=== PATIENT | female | born 1940 | race Caucasian/White ===

== ENCOUNTER 2016-11-26 08:16 | Day surgery (SDC) | payer MEDICARE, BC ==
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
[~2016-11-26 08:16] MED LIST: APRACLONIDINE 0.5% OPHTH 5 ML BTL OP ONE; BUPIVACAINE HCL/PF 0.75% 10 ML VIAL OP ONE; CIPROFLOXACIN 0.3% OPHTH 25 DROP/2.5 ML BTL OP SCH; CYCLOPENTOLATE HCL 1% OPHTH 2 ML BTL OP SCH; FLURBIPROFEN 0.03% OPHTH 2.5 ML BTL OP SCH; PHENYLEPHRINE 2.5% OPHTH 10 DROP/2 ML BTL OP SCH
[2016-11-26] MEDS ORDERED: FLURBIPROFEN 0.03% OPHTH 2.5 ML BTL ONE (08:33)
[2016-11-26] MEDS ORDERED: BUPIVACAINE HCL/PF 0.75% 10 ML VIAL ONE (08:33)
[2016-11-26] MEDS ORDERED: APRACLONIDINE 0.5% OPHTH 5 ML BTL ONE (08:33)
[2016-11-26] MEDS ORDERED: CIPROFLOXACIN 0.3% OPHTH 25 DROP/2.5 ML BTL ONE (08:34)
[2016-11-26] MEDS ORDERED: CYCLOPENTOLATE HCL 1% OPHTH 2 ML BTL ONE (08:34)
[2016-11-26] MEDS ORDERED: PHENYLEPHRINE 2.5% OPHTH 10 DROP/2 ML BTL ONE (08:34)
[2016-11-26 09:05] VITALS: RESP 18
[2016-11-26] MEDS ORDERED: BACITRACIN OPHTH OINTMENT 3.5 GM TUBE ONE (09:50)
[2016-11-26] MEDS ORDERED: CHONDROITIN/HYALURONIDATE OPHT 0.5 ML KIT ONE (09:51)
[2016-11-26] MEDS ORDERED: KETOROLAC 0.45% OPHTH 1 DROP/EACH DROPERETTE ONE (09:51)
[2016-11-26] MEDS ORDERED: LIDOCAINE HCL/PF 1% 30 ML VIAL ONE (09:51)
[2016-11-26] MEDS ORDERED: MIDAZOLAM HCL 2 MG/2 ML VIAL ONE (10:09)
[2016-11-26 10:49] VITALS: BP 141/70; PULSE 60; TEMP 97.5; O2SAT 90
--- NOTE | 2016-11-26 14:36 | OPERATIVE REPORT ---
DATE OF SURGERY: 11/26/2016. SURGEON: Dylan Moya MD ANESTHESIA: Topical with monitored anesthesia care. PREOPERATIVE DIAGNOSIS: Cataract, right eye. POSTOPERATIVE DIAGNOSIS: Cataract, right eye. OPERATION PERFORMED: Cataract extraction by phacoemulsification with posterior chamber intraocular lens, right eye. COMPLICATIONS: None. PROCEDURE: The patient was brought to the operating room where she was placed in the supine position. After the instillation of additional tetracaine drops in the right eye, the eye was prepped and draped in the usual sterile ophthalmic manner. A lid speculum was placed in the right eye, after which an inferior paracentesis was fashioned with 1-mm steel keratome, and 0.2 mL of 1% nonpreserved lidocaine was injected intracamerally followed by Viscoat. A temporal clear corneal incision of 3-mm width was fashioned with a steel keratome. A continuous curvilinear capsulorrhexis was fashioned with a bent- needle cystitome and Utrata forceps under Viscoat. Hydrodissection was carried out with balanced salt solution on an intraocular cannula. The nucleus was noted to rotate freely. Phacoemulsification proceeded in a two-handed fashion utilizing moderate phacoemulsification times and carranza, as the nucleus was noted to be 2-3+ dense. Residual cortical material was then removed with the automated irrigation-aspiration handpiece. The anterior chamber and capsular bag were then reinflated with Provisc, after which an AcrySof model SA60AT foldable acrylic intraocular lens of 24.0 diopters power was placed into the capsular bag. The haptics were rotated with a Y hook and the intraocular lens was noted to center well. Residual viscoelastic was then removed with the automated irrigation-aspiration handpiece , after which the wound edges were hydrated with balanced salt solution. The intraocular pressure at the conclusion of the procedure was physiologic, and there was no evidence of wound leakage upon testing with a Weck Romelia sponge. Acular drops and bacitracin ointment were placed in the right eye, and the patient was brought to the recovery area, having tolerated the procedure well. She was given full postoperative instructions. SHAMAR
== END 2016-11-26 11:15 | disposition home or self-care (01) ==
LOC: SDS 08:16
PROVIDERS: ATTEND Ophthalmology
DX: H25.041 Posterior subcapsular polar age-related cataract, right eye (principal); F41.9 Anxiety disorder, unspecified; I65.23 Occlusion and stenosis of bilateral carotid arteries; F32.9 Major depressive disorder, single episode, unspecified; I51.9 Heart disease, unspecified; K21.9 Gastro-esophageal reflux disease without esophagitis; I12.9 Hypertensive chronic kidney disease with stage 1 through stage 4 chronic kidney disease, or unspecified chronic kidney disease; N18.2 Chronic kidney disease, stage 2 (mild); I73.9 Peripheral vascular disease, unspecified; G47.33 Obstructive sleep apnea (adult) (pediatric); R73.01 Impaired fasting glucose; E89.0 Postprocedural hypothyroidism; E78.00 Pure hypercholesterolemia, unspecified; L71.9 Rosacea, unspecified; Z79.899 Other long term (current) drug therapy
CPT/HCPCS: 66984; J0171; J2250; V2632

== ENCOUNTER 2016-12-22 11:36 | Emergency (ER) | payer MEDICARE, BC ==
[2016-12-22 12:39] LABS: HEMATOCRIT 42.6 % (36.0-48.0); HEMOGLOBIN 14.7 g/dL (12.0-16.0); MEAN CELL VOLUME 83.3 fL (80.0-100.0); MEAN CORPUS. HGB CONCENTRATION 34.5 g/dL (32.0-36.0); MEAN CORPUSCULAR HEMOGLOBIN 28.7 pg (29.0-35.0); MEAN PLATELET VOLUME 8.1 fL (7.4-10.4); RED BLOOD COUNT 5.12 X 10^6uL (4.20-6.10); RED CELL DISTRIBUTION WIDTH 12.8 % (11.5-14.5); WHITE BLOOD COUNT 5.2 X 10^3uL (3.9-10.7)
[2016-12-22 12:51] LABS: A/G RATIO 1.3; ALBUMIN 4.3 g/dL (3.5-5.0); BILIRUBIN, TOTAL 0.7 mg/dL (0.2-1.3); CALCIUM 9.4 mg/dL (8.4-10.2); POTASSIUM 4.4 mmol/L (3.5-5.1); TOTAL PROTEIN 7.5 g/dL (6.3-8.2)
--- NOTE | 2016-12-22 13:10 | ER PHYSICIAN DOCUMENTATION ---
Physician Documentation [facility] Name:Shital Parr Age:76 yrs Sex:Female :1940 Arrival Date:12/22/2016 Time:11:36 Bed1 Private MD:Matt Jay ED, John Disposition: 12/22/16 12:53 Discharged to Home/Self Care. Impression: Hypertension. - Condition is Good. - Discharge Instructions: HYPERTENSION, Established. - Medical Reconciliation form form. - Follow up: Matt Jay MD; When: 10 - 14 days; Reason: Continuance of care. - Problem is new. - Symptoms have improved. HPI: 12/22 12:38 This 76 yrs old Female presents to ER via Private Vehicle with complaints of jm High Blood Pressure. 12:38 The patient has elevated blood pressure and discovered this at [facility]. at home. Onset: The symptom(s)/episode began/occurred 3 day(s) ago. Severity of symptoms: At its worst the blood pressure was 200 mm Hg, in the emergency department the blood pressure is improved, markedly. The patient has not experienced similar symptoms in the past. 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 She was getting an eye exam and her BP was up and she was c/o of some dizziness, so Dr. Moya recommended that she get checked out in the ER. . Historical: - Allergies: PAIN MED?; - Home Meds: 1. Atenolol Oral 2. spironolactone Oral 3. Synthroid Oral - PMHx: HYPERTENSION; ARRHYTHMIA; Dizziness - Vertigo (March 24, 2016); - Tetanus: < 10 years. - Ebola Screening: : Patient negative for fever greater than or equal to 101.5 degrees Fahrenheit, and additional compatible Ebola Virus Disease symptoms. Patient denies exposure to infectious person. Patient denies travel to an Ebola-affected area in the 21 days before illness onset. No symptoms or risks identified at this time. . - Immunization history: Unable to Obtain. - Social history: Patient uses alcohol but reports only rare drinking. ROS: 12:39 Constitutional: Negative for fatigue, fever, malaise. jm 12:39 ENT: Positive for mild L jaw and ear pain for years. . 12:39 Neck: Positive for stiffness, tenderness. 12:39 Cardiovascular: Negative for chest pain, palpitations. 12:39 Respiratory: Negative for cough, shortness of breath. 12:39 Psych: Positive for stress. Exam: 12:40 Constitutional: The patient appears alert, awake, anxious. 12:40 Eyes: Periorbital structures: appear normal, Conjunctiva: normal. 12:40 Cardiovascular: Rate: bradycardic, Rhythm: regular. 12:40 Respiratory: Respirations: normal, Breath sounds: are normal. 12:40 Neuro: Mentation: is normal, Memory: is normal. 12:40 Neuro: Cerebellar function: is grossly normal, Gait: is steady. 12:40 Psych: Behavior/mood is pleasant, cooperative, Affect is calm. Vital Signs: 11:59 BP 163 / 68; Pulse 58; Resp 20; Temp 97.7; Pulse Ox 90% on R/A; Pain 0/10; rs 11:59 BP 144 / 98; Pulse 67; Resp 20; Pulse Ox 95% on R/A; Pain 0/10; rs MDM: 11:40 Patient medically screened. 12:41 Differential diagnosis: hypertensive crisis, stress related sx. Data reviewed: vital jm signs, nurses notes, old medical records, lab test result(s), EKG, and as a result, I will discharge patient. Test interpretation: by ED physician or midlevel provider: ECG. Counseling: I had a detailed discussion with the patient and/or guardian regarding: the historical points, exam findings, and any diagnostic results supporting the discharge/admit diagnosis, lab results, the need for outpatient follow up, with the patient's primary care provider. ECG:. 13:00 ECG:. ED course: Work up normal. BP is a bit elevated, but it lowered w pt just jm relaxing and being reassured. I feel this is mostly stress related. Pt will f/u w PCP. . 12/22 12:51 Order name: COMPREHENSIVE METABOLIC PANEL; Complete Time: 17:23 EDMS 12/22 12:52 Order name: CBC AUTO DIF, MDIF/RMOR IF IND; Complete Time: 12:52 EDMS 12/22 12:53 Order name: CBC WITHOUT A DIFFERENTIAL; Complete Time: 17:23 EDMS 12/22 12:21 Order name: 12-lead EKG; Complete Time: 13:09 EC:00 Rhythm is regular. QRS Swatara is Normal. AK interval is normal. QRS interval is normal. QT interval is normal. No Q waves. T waves are Normal. No ST changes noted. Dispensed Medications: No medications were administered Signatures: Karla Grant RN RN st Stalker, Rachael, RN RN rs Meyer, John, MD MD jm
--- NOTE | 2016-12-22 13:10 | ER NURSING DOCUMENTATION ---
Nurse's Notes [facility] Name:Shital Parr Age:76 yrs Sex:Female :1940 Arrival Date:12/22/2016 Time:11:36 Bed1 Private MD:Matt Jay Diagnosis:Hypertension Presentation: 12/22 11:45 Presenting complaint:. Transition of care: Other Dr Abreu office. She was there for rs a recheck for cataract surgery 3 weeks ago, and was c/o the TMJ pain she has been having. No one was available in the clinic to see her for this so they sent her to the ER> She had her pupils dilated by Dr Moya. She has also had some episodes of high Bp in the last four days, but she states she has been very stressed due to her having a stroke and is very sick. Notified ED Physician of Nguyễn Dueñas notified. 11:45 Acuity: OBED 4 rs 11:45 Method Of Arrival: Private Vehicle rs Triage Assessment: 12:05 General: Appears comfortable, well developed, well nourished, well groomed, Behavior is rs anxious, cooperative, pleasant. Pain: Denies pain. Neuro: No deficits noted. Level of Consciousness is awake, alert, Oriented to person, place, time, event. Cardiovascular: No deficits noted. Capillary refill < 3 seconds Pulses are 3+ in left radial artery. Respiratory: No deficits noted. Airway is patent Respiratory effort is even, unlabored, Respiratory pattern is regular, symmetrical, Breath sounds are clear. Derm: No deficits noted. Skin is pink, warm & dry. Historical: - Allergies: PAIN MED?; - Home Meds: 1. Atenolol Oral 2. spironolactone Oral 3. Synthroid Oral - PMHx: HYPERTENSION; ARRHYTHMIA; Dizziness - Vertigo (March 24, 2016); - Tetanus: < 10 years. - Ebola Screening: : Patient negative for fever greater than or equal to 101.5 degrees Fahrenheit, and additional compatible Ebola Virus Disease symptoms. Patient denies exposure to infectious person. Patient denies travel to an Ebola-affected area in the 21 days before illness onset. No symptoms or risks identified at this time. . - Immunization history: Unable to Obtain. - Social history: Patient uses alcohol but reports only rare drinking. Screenin:59 Infectious Disease Risk None. Abuse screen: Denies threats or abuse. Nutritional rs screening: No deficits noted. Assessment: 12:59 Reassessment: Patient states feeling better. rs 13:31 General: pt felt dizzy when she stood up. pt is laying back down drinking some water.. st 13:36 General: pt is feeling better and wants to go home. . st Vital Signs: 11:59 BP 163 / 68; Pulse 58; Resp 20; Temp 97.7; Pulse Ox 90% on R/A; Pain 0/10; rs 11:59 BP 144 / 98; Pulse 67; Resp 20; Pulse Ox 95% on R/A; Pain 0/10; rs ED Course: 11:38 Patient arrived in ED. ds 11:38 Matt Jay MD is Private Physician. ds 11:40 Damon Adrian MD is Attending Physician. jm 12:02 Quynh Cassidy RN is Primary Nurse. rs 12:10 Notified ED Physician of patient's arrival and chief complaint. Arm band placed on Bed rs in low position Call Light in Reach HOB Elevated Side rails up x1. 12:25 Triage completed. rs 12:40 EKG done per protocol. Performed by ED Staff. Labs ordered per protocol. Drawn by lab. rs 12:40 EKG done. (by ED staff). Reviewed by Damon Adrian MD. rs 12:52 Matt Jay MD is Referral Physician. Administered Medications: No medications were administered Outcome: 12:53 Discharge ordered by . kim 13:09 Discharged to home ambulatory. rs 13:09 Condition: improved 13:09 Discharge instructions given to patient, Instructed on discharge instructions, Demonstrated understanding of instructions. 13:10 Patient left the ED. rs 13:37 Patient [address] the ED. st Signatures: Karla Grant RN RN st Stalker, Rachael, RN RN rs Srot, Eyny, Reg Reg Damon Aviles MD MD jm
== END 2016-12-22 13:37 | disposition home or self-care (01) ==
LOC: ER 11:36
DX: I10 Essential (primary) hypertension (principal); M54.2 Cervicalgia; R42 Dizziness and giddiness; Z79.899 Other long term (current) drug therapy; Z63.6 Dependent relative needing care at home
CPT/HCPCS: 36415; 80053; 85027; 93005; 93010; 99283; 99284

== ENCOUNTER 2017-01-01 20:21 | Observation (INO) | payer MEDICARE, BC ==
[2017-01-01] MEDS ORDERED: DILTIAZEM HCL 125 MG/25 ML VIAL IV ONE (21:15)
[2017-01-01 21:22] LABS: BASOPHIL# 0.1 X 10^3uL (0.0-0.1); BASOPHILS 1.6 % (0.0-2.0); EOSINOPHILS 2.6 % (0.0-6.0); EOSINOPHILS# 0.1 X 10^3uL (0.0-0.4); HEMOGLOBIN 15.6 g/dL (12.0-16.0); LYMPHOCYTES 42.8 % (20.0-40.0); LYMPHOCYTES# 2.4 X 10^3uL (0.8-3.8); MEAN CELL VOLUME 83.5 fL (80.0-100.0); MEAN CORPUS. HGB CONCENTRATION 34.7 g/dL (32.0-36.0); MEAN PLATELET VOLUME 8.8 fL (7.4-10.4); MONOCYTES 8.8 % (2.0-10.0); MONOCYTES# 0.5 X 10^3uL (0.2-1.0); NEUTROPHILS 44.2 % (54.0-75.0); NEUTROPHILS# 2.5 X 10^3uL (2.6-6.7); PLATELET COUNT 124 X 10^3uL (130-440); RED BLOOD COUNT 5.39 X 10^6uL (4.20-6.10); RED CELL DISTRIBUTION WIDTH 12.7 % (11.5-14.5); WHITE BLOOD COUNT 5.6 X 10^3uL (3.9-10.7)
[2017-01-01 21:28] LABS: BLOOD UREA NITROGEN 18 mg/dL (7-17); CALCIUM 9.7 mg/dL (8.4-10.2); CHLORIDE 103 mmol/L (98-107); EST GLOMERULAR FILTRATION RATE 57 mL/min; GLUCOSE 103 mg/dL (70-100); MAGNESIUM 2.1 mg/dL (1.6-2.3); SODIUM 137 mmol/L (137-145)
--- NOTE | 2017-01-01 21:33 | RADIOLOGY REPORT ---
HISTORY: Dizziness. Hypertension. COMPARISON: None. TECHNIQUE: Portable AP chest. FINDINGS: There is mild to moderate hypoinflation of the lungs. No focal areas of consolidation. No pleural eff usions or pneumothoraces. Top normal heart size to mild cardiomegaly. Mild atherosclerosis and tortu osity thoracic aorta. Spondylosis thoracic spine. Mild degenerative arthritis shoulders. Osteopenia. IMPRESSION: 1. Mild to moderate hypoinflation of the lungs with no focal areas of consolidation. 2. Top normal heart size to mild cardiomegaly. Final Electronic Signature: This report was electronically signed by Gerry May MD on 01/01/2017 9: 31 PM. ivan /
[2017-01-01 21:40] LABS: TROPONIN I < 0.012 ng/mL (0.00-0.034)
[2017-01-01] MEDS ORDERED: LORazepam 1 MG TABLET ONE (21:47)
[2017-01-01] MEDS ORDERED: HOME MEDICATION LIST NEEDED 1 EA EACH MISC ONE (22:51)
[2017-01-01] MEDS ORDERED: MORPHINE SULFATE 10 MG/ML SYR IV PRN (22:51)
[2017-01-01] MEDS ORDERED: ZOLPIDEM TARTRATE 5 MG TABLET PO PRN (22:51)
[2017-01-01] MEDS ORDERED: ACETAMINOPHEN 325 MG TABLET PO PRN (22:51)
[2017-01-01] MEDS ORDERED: MAGNESIUM HYDROXIDE 30 ML UDC PO PRN (22:51)
[2017-01-01] MEDS ORDERED: LABETALOL HCL 100 MG/20 ML VIAL IV PRN (22:56)
--- NOTE | 2017-01-01 23:49 | ER NURSING DOCUMENTATION ---
Nurse's Notes [facility] Name:Shital Parr Age:76 yrs Sex:Female :1940 Arrival Date:01/01/2017 Time:20:21 Bed4 Private MD:Matt Jay Diagnosis:Atrial Fibrillation with Rapid Ventricular Response;Hypertensive Emergency Presentation: 01/01 20:55 Presenting complaint: Patient states: States she has been feeling well since she was rs last in the ER. Saw the order management specialist and was started on Losartan 12/26/2016.. She checks her BP TID and had a systolic of 123 this morning, then 149 after lunch, and she was feeling fine when she took the evening BP, buit afterward started having dizziness and pressure in her head.. 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 Denies CP or SOB, no n/v. Transition of care: patient was not received from another setting of care. Notified ED Physician of patient's arrival and CC. 20:55 Acuity: OBED 2 rs 20:55 Method Of Arrival: Private Vehicle rs Triage Assessment: 21:18 General: Appears well developed, well nourished, Behavior is anxious, Not completely rs cooperative. Requested that she allow us to get an EKG prior to getting up to BR, but did not respond and just stood up and walked to the BR. IV delayed also. Seems angry. . Smells of alcohol. Pain: Denies pain. Neuro: No deficits noted. Level of Consciousness is awake, alert, Oriented to person, place, time, event, Reports blurred vision Denies weakness paresthesias numbness photophobia. Cardiovascular: Capillary refill < 3 seconds Pulses are 3+ in left radial artery Denies fatigue, palpitations, Rhythm is sinus tachycardia with PACs with unifocal PVCs Chest pain is denied. Respiratory: No deficits noted. Airway is patent Respiratory effort is even, unlabored, Respiratory pattern is regular, symmetrical, Breath sounds are clear bilaterally. GI: No deficits noted. Derm: No deficits noted. Skin is pink, warm & dry. flushed. Historical: - Allergies: PAIN MED?; - Home Meds: 1. Synthroid Oral 2. spironolactone Oral 3. Atenolol Oral 4. losartan 25 mg oral tab 1 tab once daily - PMHx: Hypertension (December 22, 2016); HYPERTENSION; ARRHYTHMIA; Dizziness - Vertigo (March 24, 2016); - PSHx: FOOT; - Tetanus: unknown. - Ebola Screening: : Patient negative for fever greater than or equal to 101.5 degrees Fahrenheit, and additional compatible Ebola Virus Disease symptoms. Patient denies exposure to infectious person. Patient denies travel to an Ebola-affected area in the 21 days before illness onset. No symptoms or risks identified at this time. . - Immunization history: Unable to Obtain. - Social history: Smoking status: unknown if patient ever smoked tobacco. Screenin:00 Infectious Disease Risk None. Abuse screen: Denies threats or abuse. Nutritional rs screening: No deficits noted. Assessment: 21:46 Reassessment: Patient states feeling better. Cardiovascular: Rhythm is sinus rhythm rs with PACs. Derm: Skin is pink, warm & dry. Vital Signs: 20:37 Pulse 84 MON; Resp 19; Pulse Ox 94% ; rs 20:42 BP 172 / 102 (auto/); rs 21:07 BP 173 / 70 (auto/); Pulse 96 MON; Resp 18; Pulse Ox 93% ; rs 21:12 Pulse 64 MON; Resp 17; Pulse Ox 95% ; rs 21:14 BP 179 / 75 (auto/); rs 21:27 Pulse 69 MON; Resp 23; Pulse Ox 92% ; rs 21:42 Pulse 69 MON; Resp 19; Pulse Ox 90% ; rs 22:02 BP 143 / 68 (auto/); rs 22:16 BP 167 / 82 (auto/); rs 22:17 Pulse 74 MON; Resp 19; Pulse Ox 95% ; rs 23:48 BP 145 / 68; Pulse 78; Resp 18; Pulse Ox 95% on R/A; rh ED Course: 20:22 Patient arrived in ED. ma1 20:22 Matt Jay MD is Private Physician. ma1 20:30 Notified ED Physician of patient's arrival and chief complaint. Arm band placed on Bed rs in low position Call Light in Reach Gowned HOB Elevated Side rails up x1. Family accompanied patient. 20:35 EKG done per protocol. Performed by ED Staff. Shown to ED physician. Labs ordered per rs protocol. Drawn by ED staff. X-ray done. X-ray ordered. 20:37 Damon Adrian MD is Attending Physician. jm 20:45 Inserted peripheral IV: 20 gauge in right antecubital area and blood collected. rh 20:55 Quynh Cassidy RN is Primary Nurse. rs 21:15 Triage completed. rs 21:18 Port Xray Completed. bassam 22:17 Dr Vergara with pt. rs 22:57 Toribio Kulkarni MD is Admitting Physician. Administered Medications: 21:05 Drug: Cardizem 10 mg; Route: IVP; Rate: 2 mg/min; Infused Over: 5 mins; Site: right rs antecubital; 22:15 Follow up: Response: No adverse reaction; Blood pressure is lowered; Cardiac rhythm rs changed 21:37 Drug: Ativan 1 mg; Route: PO; rs 23:29 Follow up: Response: Anxiety decreased rh 21:49 CANCELLED (Physician Discretion): Esmolol 500 mcg/kg/min IV at calculated rate Per protocol Outcome: 22:57 Decision to Admit by Provider. 23:40 Admitted to Med/surg accompanied by nurse, via stretcher, with chart. 23:40 Condition: stable 23:40 Report given to SHEY LANG FROM MED SURG 23:40 Instructed on need to admit 23:48 Patient left the ED. Signatures: Quynh Cassidy RN RN Damon Graff MD MD jm Abbott, Estefani Santamaria Evangelina Cassidy
--- NOTE | 2017-01-01 23:49 | ER PHYSICIAN DOCUMENTATION ---
Physician Documentation [facility] Name:Shital Parr Age:76 yrs Sex:Female :1940 Arrival Date:01/01/2017 Time:20:21 Bed4 Private MD:Matt Jay ED, John Disposition: 01/01/17 22:57 Admit ordered for Toribio Albarado. Preliminary diagnosis are Atrial Fibrillation with Rapid Ventricular Response, Hypertensive Emergency. - Bed requested for Medical/Surgical. - Condition is Fair. - Problem is new. - Symptoms have improved. 23 HR OBS Yes HPI: 01/01 21:29 This 76 yrs old Female presents to ER via Private Vehicle with complaints of jm Dizziness, High Blood Pressure. 21:29 The patient presents with dizziness. Onset: The symptom(s)/episode began/occurred jm today. Context: occurred while the patient was after pt took BP. Modifying factors: the symptoms are aggravated by nothing. Associated signs and symptoms: Pertinent positives: headache. Severity of symptoms: in the emergency department the symptoms are unchanged. The patient has not experienced similar symptoms in the past. The patient has not recently seen a physician. 76 yo F here for elevated BP and dizziness. . Historical: - Allergies: PAIN MED?; - Home Meds: 1. Synthroid Oral 2. spironolactone Oral 3. Atenolol Oral 4. losartan 25 mg oral tab 1 tab once daily - PMHx: Hypertension (December 22, 2016); HYPERTENSION; ARRHYTHMIA; Dizziness - Vertigo (March 24, 2016); - PSHx: FOOT; - Tetanus: unknown. - Ebola Screening: : Patient negative for fever greater than or equal to 101.5 degrees Fahrenheit, and additional compatible Ebola Virus Disease symptoms. Patient denies exposure to infectious person. Patient denies travel to an Ebola-affected area in the 21 days before illness onset. No symptoms or risks identified at this time. . - Immunization history: Unable to Obtain. - Social history: Smoking status: unknown if patient ever smoked tobacco. ROS: 21:33 Constitutional: Negative for fever, malaise. jm 21:33 Eyes: Negative for blurry vision. 21:33 Cardiovascular: Negative for palpitations. 21:33 Respiratory: Negative for cough, shortness of breath. 21:33 Abdomen/GI: Negative for abdominal pain, nausea, vomiting, diarrhea. 21:33 MS/extremity: Negative for rash, swelling. 21:33 Neuro: Positive for dizziness, headache. 21:33 Psych: Positive for anxiety. 21:33 All other systems are negative. Exam: 21:38 Constitutional: The patient appears alert, awake, anxious. 21:38 Eyes: Periorbital structures: appear normal, Conjunctiva: normal. 21:38 Neck: Thyroid: appears normal, Trachea: is midline with no obvious abnormalities. 21:38 Cardiovascular: Rate: tachycardic, Rhythm: irregularly irregular. 21:38 Respiratory: the patient does not display signs of respiratory distress, Respirations: normal, Breath sounds: are normal. 21:38 Abdomen/GI: Bowel sounds: normal, Palpation: abdomen is soft and non-tender. 21:38 Musculoskeletal/extremity: Pulses: are normal with no appreciated deficits, DVT Exam: No signs of deep vein thrombosis. Calves: are non-tender, have equal circumference. 21:38 Neuro: Mentation: is normal, Memory: is normal. 21:38 Psych: Behavior/mood is pleasant, cooperative, anxious, Affect is calm. Vital Signs: 20:37 Pulse 84 MON; Resp 19; Pulse Ox 94% ; rs 20:42 BP 172 / 102 (auto/); rs 21:07 BP 173 / 70 (auto/); Pulse 96 MON; Resp 18; Pulse Ox 93% ; rs 21:12 Pulse 64 MON; Resp 17; Pulse Ox 95% ; rs 21:14 BP 179 / 75 (auto/); rs 21:27 Pulse 69 MON; Resp 23; Pulse Ox 92% ; rs 21:42 Pulse 69 MON; Resp 19; Pulse Ox 90% ; rs 22:02 BP 143 / 68 (auto/); rs 22:16 BP 167 / 82 (auto/); rs 22:17 Pulse 74 MON; Resp 19; Pulse Ox 95% ; rs 23:48 BP 145 / 68; Pulse 78; Resp 18; Pulse Ox 95% on R/A; rh MDM: 20:37 Patient medically screened. jm 22:54 Differential diagnosis: cardiac arrhythmia, hyperventilation, HTN urgency/emergency, jm Afib w RVR. Data reviewed: vital signs, nurses notes, old medical records, lab test result(s), EKG, radiologic studies, and as a result, I will admit patient. Test interpretation: by ED physician or midlevel provider: plain radiologic studies, ECG. Counseling: I had a detailed discussion with the patient and/or guardian regarding: the historical points, exam findings, and any diagnostic results supporting the discharge/admit diagnosis, lab results, radiology results, the need for further work-up and treatment in the hospital. ECG:. Medication response: The patient's symptoms have improved, dilt. Physician consultation: Toribio Albarado MD regarding admission, and will see patient immediately. ED course: Pt's HTN and fib w RVR slowed w 10mg of dilt. Dr. Albarado is here and will admit for HTN emergency/urgency and afib w RVR. HE will write orders. Labs show chronic thrombocytopenia, but worse today. CXR normal. . 01/01 21:26 Order name: CBC AUTO DIF, MDIF/RMOR IF IND; Complete Time: 21:42 EDPR 01/01 21:32 Order name: BASIC METABOLIC PANEL; Complete Time: 21:42 [facility] 01/01 21:32 Order name: MAGNESIUM; Complete Time: 21:42 EDPR 01/01 21:39 Order name: PROTIME/INR; Complete Time: 21:42 EDPR 01/01 21:41 Order name: TROPONIN I; Complete Time: 21:42 EDPR 01/01 21:35 Order name: CHEST; [place] [id number]; Complete Time: 21:42 [facility] 01/01 20:56 Order name: 12-lead EKG; Complete Time: 21:05 01/01 20:56 Order name: Iv Saline Lock; Complete Time: 21:05 01/01 20:56 Order name: Place Patient On Monitor; Complete Time: 21:05 01/01 20:56 Order name: Pulse Ox Continuous; Complete Time: 21:05 EC:54 Rhythm is irregularly irregular, A fib. QT interval is normal. No Q waves. T waves are jm Normal. No ST changes noted. Dispensed Medications: 21:05 Drug: Cardizem 10 mg; Route: IVP; Rate: 2 mg/min; Infused Over: 5 mins; Site: right rs antecubital; 22:15 Follow up: Response: No adverse reaction; Blood pressure is lowered; Cardiac rhythm rs changed 21:37 Drug: Ativan 1 mg; Route: PO; rs 23:29 Follow up: Response: Anxiety decreased 21:49 CANCELLED (Physician Discretion): Esmolol 500 mcg/kg/min IV at calculated rate Per protocol Signatures: Quynh Cassidy RN RN rs Meyer, John, MD MD jm Hofsess, Rachel
[2017-01-02] MEDS ORDERED: O2 HUMIDIFIER 650 ML BOTTLE INHALATION ONE (01:05)
[2017-01-02] MEDS: LABETALOL HCL 100 MG TABLET PO SCH ×2 (01:14→08:14)
[2017-01-02 03:32] LABS: BASOPHIL# 0.1 X 10^3uL (0.0-0.1); BASOPHILS 1.3 % (0.0-2.0); EOSINOPHILS 2.2 % (0.0-6.0); EOSINOPHILS# 0.1 X 10^3uL (0.0-0.4); HEMATOCRIT 40.3 % (36.0-48.0); HEMOGLOBIN 13.7 g/dL (12.0-16.0); LYMPHOCYTES 46.9 % (20.0-40.0); LYMPHOCYTES# 2.1 X 10^3uL (0.8-3.8); MEAN CELL VOLUME 83.1 fL (80.0-100.0); MEAN CORPUSCULAR HEMOGLOBIN 28.2 pg (29.0-35.0); MEAN PLATELET VOLUME 8.1 fL (7.4-10.4); MONOCYTES 9.1 % (2.0-10.0); MONOCYTES# 0.4 X 10^3uL (0.2-1.0); NEUTROPHILS 40.5 % (54.0-75.0); NEUTROPHILS# 1.8 X 10^3uL (2.6-6.7); PLATELET COUNT 148 X 10^3uL (130-440); RED BLOOD COUNT 4.85 X 10^6uL (4.20-6.10); RED CELL DISTRIBUTION WIDTH 12.7 % (11.5-14.5); WHITE BLOOD COUNT 4.5 X 10^3uL (3.9-10.7)
[2017-01-02 03:35] LABS: BLOOD UREA NITROGEN 16 mg/dL (7-17); CALCIUM 8.9 mg/dL (8.4-10.2); CHLORIDE 109 mmol/L (98-107); CREATININE 0.8 mg/dL (0.5-1.0); EST GLOMERULAR FILTRATION RATE > 60 mL/min; GLUCOSE 101 mg/dL (70-100); SODIUM 139 mmol/L (137-145)
[2017-01-02 03:47] LABS: TROPONIN I < 0.012 ng/mL (0.00-0.034)
[2017-01-02] MEDS: PANTOPRAZOLE 40 MG TABLET PO SCH (06:28)
[2017-01-02] MEDS: LEVOTHYROXINE 100 MCG TABLET PO SCH (06:28)
--- NOTE | 2017-01-02 07:39 | HISTORY & PHYSICAL ---
DATE OF ADMISSION: 01/01/17 ATTENDING PHYSICIAN: Toribio Kulkarni MD EMERGENCY ROOM PHYSICIAN: Damon Sevilla MD PRIMARY CARE PHYSICIAN: Matt Jay MD CHIEF COMPLAINT: Rapid atrial fibrillation with hypertensive urgency. HISTORY OF PRESENT ILLNESS: Patient relates being in her usual state of health with controlled hypertension, although recent medication changes about a month ago. She underwent cataract surgery and her preoperative blood pressure was noted in the OR at 190s/70s. It was noted that she had hypertensive for some years and had recent medication changes including discontinuing Lisinopril for concerns regarding angioedema. It was noted that while taking Lisinopril that she had increases in her creatinine and does carry the diagnosis of stage 3 chronic kidney disease. She received medications, her blood pressure normalized and she underwent surgery without complications. She noticed shortly after that her grandson, who is bipolar and is usually well controlled on Depakote, attempted suicide by hanging, and was subsequently evaluated in the Emergency Room. In addition, to the attempted hanging, he did take 90 pills of Depakote and was transferred from [facility]. Because of the stress and anxiety and some of the impulsivity with money he had spent they do not have while he was manic, this has caused the patient some distress, and she has noticed paroxysmal hypertension since then. She does carry a diagnosis of PVCs and has seen Dr. Granados in the past and had been started on Atenolol. She also was seen by Dr. Lopez last week because of hypertension and had Losartan added to her medication regimen. She has also seen Dr. Jay, who had changed her Lisinopril to Spironolactone, as she had concerns regarding angioedema. Since then she has been checking her blood pressures fairly frequently, and she notes in the mornings that she is usually in the 120s/60s, by lunchtime 110s/60s, but spikes after dinner. Although today noted her blood pressure to be over 200 systolic and 90s diastolic. She felt dizzy and faint. There was no chest pain or shortness of breath. No paroxysmal nocturnal dyspnea or orthopnea, but she did have palpitations, and she noted on her blood pressure monitor that her heart rate was over 100. She called her son in [place] who is an EMT, and he rechecked her blood pressure in the 190s/100s and heart in the 120s, and he brought her to [facility] via ambulance. She states that she is otherwise well. No cough, cold, congestion recently. She is not taking decongestants or any new medications other than Losartan and Aldactone. She does relate increasing stress as above with her grandson and his hospitalization recently. She has noted prior paroxysmal hypertension as well as increased creatinine on an tin inhibitor. In the Emergency Room, she was treated with a single dose of Cardizem 10 mg with conversion of her atrial fibrillation back to sinus rhythm, and has continued to be hypertensive in the 150s-200s systolic despite the Cardizem. Labs including a troponin were unremarkable, with the exception of a platelet count in the 120s, and she does carry a diagnosis of thrombocytopenia. I was asked to admit the patient for management of her hypertension and atrial fibrillation, and did discuss with Dr. Adrian consideration of Asmol zehra, but unfortunately was unable to use vasoactive medications on the medical-surgical floor. An EKG in the Emergency Room showed a sinus rhythm, upright R-waves in V1 , but no acute ST-T wave changes of ischemia. Review of her old record, her most recent echocardiogram and cardiac duplex were over 03/2016, and showed minimal carotid stenosis between 1-15% bilaterally. She had aortic valve sclerosis, but normal ejection fraction and remainder of valves were unremarkable. She did have grade 1 diastolic dysfunction. PAST MEDICAL HISTORY 1. Possible angioedema possibly related to Tin inhibitor. 2. Anxiety. 3. Bakers cyst on her left knee. 4. Carotid stenosis per Dr. Bhatti notes, although most recent duplex argues against this. 5. Depression. 6. Diastolic dysfunction. 7. Gastroesophageal reflux disease. 8. Hemorrhoids, 9. Dyslipidemia. 10. Hypertension. 11. Hypothyroidism, status post ablation. 12. Nocturnal hypoxemia with sleep apnea and uses oxygen but without CPAP. 13. Impaired glucose tolerance. 14. Polycythemia related to untreated sleep apnea. 15. PTSD. 16. Sciatica. 17. Stage 3 chronic kidney disease, although creatinines have recently been around 0.9 to 1.1. 18. Thrombocytopenia. PAST SURGICAL HISTORY 1. Cataract surgery. 2. Cholecystectomy. 3. Blepharoplasty. DIAGNOSTIC STUDIES 1. Carotid ultrasounds, in 2013 she had 16-49% right internal carotid artery stenosis. A repeat in 2015, showed only mild disease of 1-15% bilaterally. 2. Echocardiogram 03/2016 showing ejection fraction 70%, aortic sclerosis and grade I diastolic dysfunction. 3. Stress echocardiogram in 2013 was unremarkable. ALLERGIES: Multiple including Tetracycline, Lasix, Hydrochlorothiazide, Diapamide, Lipitor but tolerates Crestor, Lisinopril with possible angioedema and cough, Niaspan with flushing and nonsteroidals although tolerates Indomethacin and aspirin. FAMILY HISTORY: Coronary disease in her son and hepatitis C in her brother. SOCIAL HISTORY: She does not drink alcohol. 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 She is a lifelong nonsmoker. MEDICATIONS Aspirin 81 mg daily. Atenolol 25 mg daily. Oxygen 2 liters nightly. Ibuprofen 600 mg as needed. Prednisolone eye drops 4 times daily in surgically treated eye, although is not currently using those. Prilosec 20 mg daily as needed. ProAir 2 puffs by MDI as needed for cough and wheeze. Crestor 5 mg at bedtime. Aldactone 75 mg twice daily. Synthroid 100 mcg daily. Losartan 25 mg daily. Lasix is listed but has not been taking this secondary to side effects. PHYSICAL EXAMINATION VITAL SIGNS: Blood pressures have ranged in the 140s-170s since my review and 60 -90s diastolic, heart rates range in the 60-90s with intermittent PVCs, but otherwise sinus rhythm. Respiratory rate is 14. She is afebrile at 98.8 and she is saturating 95% on 2 liters by nasal cannula. GENERAL: She is pleasant, tearful in no apparent distress. No jaundice, anemia, cyanosis, clubbing or lymphadenopathy. HEENT: Unable to appreciate her fundi as her pupils are miotic. Her oropharynx is clear with moist mucosa. Neck is supple with no masses or bruits appreciated. CARDIAC: Systolic murmur in the right upper sternal border but without radiation. There is no right upper ventricular heave, no further murmurs appreciated. No gallop rhythm. There is no sacral edema or pedal edema. RESPIRATORY: Good air entry into the bases and no adventitial sounds. ABDOMEN: Distended but nontender. No bruits over the kidneys. No other masses noted and bowel sounds are active. LOWER EXTREMITIES: She has no edema and 2+ dorsal pedis pulses bilaterally. LABORATORY DATA: White count 5.6, 44% neutrophils, 42% lymphocytes, hemoglobin at 15.6 and platelet count of 124. Her INR was 1 and chemistries showed troponin of less than 0.012, magnesium of 2.1. Her BUN is 18 with creatinine of 1.0 and sodium 137, potassium 4, chloride 103 and bicarb of 24. IMAGING: Chest x-ray shows mild to moderate hypoinflation of lungs but no consolidation and normal to slightly cardiomegaly heart size. EKG described above. ASSESSMENT 1. Hypertensive urgency. 2. Atrial fibrillation and rapid ventricular rate. 3. History of paroxysmal hypertension with increased creatinine while taking tin inhibitors. 4. Hypothyroidism. 5. Dyslipidemia. 6. Hypoxemia. PLAN: Patient's CHADSVASC is 3 suggesting that she would benefit from anticoagulation with paroxysmal atrial fibrillation. Have increased her aspirin to full strength and would consider Pradaxa but have requested cardiology to meet with patient and consult with consideration of repeating echocardiogram. Regarding rate control, have started Labetalol and discontinued patient's Atenolol. Part of this reason, is that will start an oral dose of Labetalol as well as PRN doses for management of her hypertension and heart rate. Have continued her Losartan and Aldactone, although decreased the dose of Aldactone some and increased the Losartan to 50 mg per day, and will titrate further over the next day or two if she remains in the hospital. The paroxysmal nature of the hypertension as well as increased creatinine on an Tin inhibitor resolved after discontinuation, does make me concerned regarding renal artery stenosis being the driving factor for hypertension that is paroxysmal in nature. I have requested plasma renin and Aldosterone level, though the suspect the Aldosterone will be partly affected by her concomitant use of Aldactone, and have requested a CT angiography of her kidneys and renal arteries, specifically for renal artery stenosis. Again, with the paroxysmal nature, I have requested a 24-hour urine collection for catacholamines and a TSH. Will recheck her CBC, BMP and troponins in the morning. Patient is a full code. MTDD
[2017-01-02] MEDS ORDERED: SPIRONOLACTONE 25 MG TABLET PO SCH (09:00)
[2017-01-02 09:03] LABS: TROPONIN I < 0.012 ng/mL (0.00-0.034)
[2017-01-02 09:12] LABS: THYROID STIMULATING HORMONE 1.23 uIU/mL (0.47-4.68)
--- NOTE | 2017-01-02 09:13 | PROGRESS NOTE: IM APSO ---
Assessment and Plan - Date of Encounter Date of Encounter: 01/02/17 (1) Hypertensive urgency Status: Acute Assessment and plan: On lisinopril had ?angioedema and elevated creatinine, seen by Dr. Jay and changed to aldactone at 75mg bid and then Dr. Lopez losartan 25mg/d and then Darwin with atenolol. Last nocte paroxysmal HTN to 200/100's and has been like this for some time intermittently. Work up for SHIRLENE/secondary HTN pending, changed to labetalol for rate control and BP menagement, full ASA and CHADS Vasc 3, request cardiology c/s for help in management and regading anticoagulation (NOAC vswarfarin vs ASA w/ thrombocytopenia). Increasing losartan to 50mg and cut aldactone to 50mg/bid. May need to increase losartan further. Current Visit: Yes (2) Atrial fibrillation with RVR Status: Acute Assessment and plan: Parosxymal, rate controlled with normodyne and full ASA with cars c/s pending regarding anticoagulation Current Visit: Yes (3) Hypothyroid Status: Chronic Assessment and plan: compend=sated, f/u labs and may need to adjust synthroid. Current Visit: Yes (4) Nocturnal hypoxemia Status: Acute Current Visit: Yes (5) Sleep apnea Status: Acute Assessment and plan: patient not wish CPAPbut does use nocte oxygen Current Visit: Yes (6) Bilateral atherosclerotic renal artery stenosis Status: Acute Assessment and plan: Will continue current iteration of medications as heart rate and blood pressure controlled, appreciate consult by Dr. Montero, have already cut aldactone dose back, will use labetalol as tolerating and not change to coreg, she is also on losartan which has been increased and won't start HCTZ as med listed as allergy. Current Visit: Yes - Time Spent With Patient Total time spent with greater than 50% in coordination of care (as documented) at patient's floor/unit and/or counseling patient: Greater than 35 minutes IM: PN Subjective General: no fatigue, no anxiety, no depression, no pain, no fever, no chills HEENT: no visual changes, no headache Cardiovascular: no chest pain, no chest pressure, no palpitations Respiratory: no cough Gastrointestinal: no abdominal pain, no nausea, no vomiting Musculoskeletal: no pain Neurological: no headache, no numbness, no tingling, no limb weakness IM: PN Objective Exam - I&O/Vital Signs I&O: Intake & Output 01/01/17 01/02/17 01/02/17 21:59 05:59 13:59 Intake Total 200 Output Total 600 Balance -400 Weight 77.5 kg Intake: Oral 200 Output: Urine 600 Other: Urine Appearance Clear Urine Color Yellow Voiding Method Toilet # Voids 2 # Bowel Movements 0 Vital Signs: Last Vital Signs Temp 36.6 C 01/02/17 06:27 Pulse 61 01/02/17 06:27 Resp 16 01/02/17 06:27 BP 129/59 01/02/17 06:27 Pulse Ox 96 01/02/17 06:27 Oxygen Flow Rate 2 Oxygen Delivery Method Nasal Cannula - Constitutional General appearance: Present: average body habitus - Head Head exam: Present: atraumatic - Eye Eye exam: Present: EOMI, normal appearance - ENT ENT exam: Present: mucous membranes moist - Neck Neck exam: Present: full ROM. Absent: lymphadenopathy, thyromegaly - Respiratory Respiratory exam: Present: CTAB - Cardiovascular Cardiovascular exam: Present: RRR (murmer at RUSB) - GI/Abdominal GI/Abdominal exam: Present: normal bowel sounds, soft. Absent: organomegaly, tenderness - Extremities Exam Extremities exam: Absent: calf tenderness, edema - Lab Labs: Laboratory Last Values WBC 4.5 X 10^3uL (3.9-10.7) 01/02/17 03:20 RBC 4.85 X 10^6uL (4.20-6.10) 01/02/17 03:20 Hgb 13.7 g/dL (12.0-16.0) 01/02/17 03:20 Hct 40.3 % (36.0-48.0) 01/02/17 03:20 MCV 83.1 fL (80.0-100.0) 01/02/17 03:20 MCH 28.2 pg (29.0-35.0) L 01/02/17 03:20 MCHC 34.0 g/dL (32.0-36.0) 01/02/17 03:20 RDW 12.7 % (11.5-14.5) 01/02/17 03:20 Plt Count 148 X 10^3uL (130-440) 01/02/17 03:20 MPV 8.1 fL (7.4-10.4) 01/02/17 03:20 Neutrophils % 40.5 % (54.0-75.0) L 01/02/17 03:20 Lymphocytes % 46.9 % (20.0-40.0) H 01/02/17 03:20 Eosinophils % 2.2 % (0.0-6.0) 01/02/17 03:20 Basophils % 1.3 % (0.0-2.0) 01/02/17 03:20 Neutrophils # 1.8 X 10^3uL (2.6-6.7) L 01/02/17 03:20 Lymphocytes # 2.1 X 10^3uL (0.8-3.8) 01/02/17 03:20 Monocytes 9.1 % (2.0-10.0) 01/02/17 03:20 Monocytes # 0.4 X 10^3uL (0.2-1.0) 01/02/17 03:20 Eosinophils # 0.1 X 10^3uL (0.0-0.4) 01/02/17 03:20 Basophils # 0.1 X 10^3uL (0.0-0.1) 01/02/17 03:20 PT 13.6 sec (13.0-16.6) 01/01/17 20:55 INR 1.0 01/01/17 20:55 Sodium 139 mmol/L (137-145) 01/02/17 03:20 Potassium 4.0 mmol/L (3.5-5.1) 01/02/17 03:20 Chloride 109 mmol/L (98-107) H 01/02/17 03:20 Carbon Dioxide 22 mmol/L (22-30) 01/02/17 03:20 BUN 16 mg/dL (7-17) 01/02/17 03:20 Creatinine 0.8 mg/dL (0.5-1.0) 01/02/17 03:20 GFR Calculation > 60 mL/min 01/02/17 03:20 Glucose 101 mg/dL (70-100) H 01/02/17 03:20 Calcium 8.9 mg/dL (8.4-10.2) 01/02/17 03:20 Magnesium 2.0 mg/dL (1.6-2.3) 01/02/17 03:20 Troponin I < 0.012 ng/mL (0.00-0.034) 01/02/17 08:10 Renin Activity Cancelled 01/02/17 08:10 Aldosterone Cancelled 01/02/17 08:10 Quality Questions - VTE Prophylaxis Assessment VTE Present on Admission?: No Patient at risk for venous thromboembolism?: Yes VTE Risk Level: Low Risk Pharmaceutical VTE prophylaxis contraindication reason: not indicated Mechanical VTE prophylaxis contraindication reason: not indicated
[2017-01-02] MEDS: LOSARTAN POTASSIUM 50 MG TABLET PO SCH (09:26)
--- NOTE | 2017-01-02 11:32 | CT REPORT ---
HISTORY: Poorly controlled, uncontrolled hypertension despite medication. Rule out renal artery stenosis. COMPARISON: 09/17/2012 TECHNIQUE: This examination was performed using automated exposure control, adjustment of mA or kV according to patient size, and/or use of iterative reconstruction technique. Axial images of the abdomen and pelvi s obtained during arterial phase with intravenous contrast from dome of the diaphragm through the sym physis pubis, multiplanar and 3-D reformat images are evaluated. 100cc Isovue 300 and contrast. FINDINGS: Lung bases are hypoventilated. There is dependent vascular congestion and dependent atelectasis in flor th lower lobes. There is heterogeneous groundglass opacity which could represent mild pneumonitis or may be secondary to been vascular congestion. No confluent infiltrate or consolidation. No pleural ef fusion. The heart size is borderline enlarged. There is a left ventricular hypertrophy. No pericardia l effusion. There is a 3 cm hiatal hernia. There is atherosclerosis throughout the lower thoracic and abdominal aorta including the major branch vessels of the celiac axis SMA, renal arteries and iliac vessels. No focal aneurysm. No periaortic m ass or adenopathy. There is moderate to severe narrowing of the origin of the celiac axis but the ves bertram does enhance. This inferior vena cava is small which can be seen with intravascular volume the co mpletion. Single renal arteries are identified. There is marked, focal calcified plaque formation at the origin of the left renal artery. There is 70-90% stenosis at the origin of the left renal artery. The [place] transverse luminal diameter at the origin is a 1 x 2 mm. The distal left renal artery measures 6 mm in diameter. There is a focal abdominal a noncalcified plaque formation at the origin of the righ t renal artery which produces 70-90% stenosis. The narrowest transverse dimension of the lumen is 1.5 to 2 mm. The iliac vessels are well maintained. There is calcified atherosclerotic plaque in the common femora l arteries bilaterally more severe on the right. There is high-grade stenosis of the origin of the ri ght SFA. (75-90%). Liver is unremarkable. Gallbladder surgically absent. Common bile duct measures 8 mm in diameter. Spl een is unremarkable. Is no pancreatic mass or ductal dilatation. No adrenal mass. The position, confi guration and enhancement of the kidneys are within normal limits. No hydronephrosis. There is a nonobstructed benign-appearing bowel gas pattern. No free air or pneumatosis. No free flui d. No gastric or small bowel distention. Mesenteric fat is unremarkable. No pathologic adenopathy. IMPRESSION: 1. Diffuse atherosclerosis of the abdominal aorta and major branch vessels including the celiac axis and both renal arteries. No aneurysm. 2. 70-90% stenosis of the origin of the left renal artery and at the ostia of the right renal artery. 3. 70-90% stenosis of the origin of the celiac axis. 4. High-grade, 75-90% stenosis of the origin of the right superficial femoral artery. 5. Gallbladder surgically absent. There is persistent dilatation of the common bile duct without intr ahepatic dilatation similar to previous study. Voicemail was left on cell phone for Dr. YESSENIA TURNER at 01/02/2017 11:27 AM. Final Electronic Signature: This report was electronically signed by Phong Pfeiffer MD on 01/02/2017 11: 29 AM. [facility] /
--- NOTE | 2017-01-02 14:55 | CONSULTATION ---
DATE OF CONSULTATION: 01/02/17 [employer] MEASURER: Wally Montero MD REQUESTING PHYSICIAN: Toribio Kulkarni MD REASON FOR CONSULTATION: Hypertension, paroxysmal atrial fibrillation. HISTORY OF PRESENT ILLNESS: The patient is a 76-year-old female with a history of hypertension and hyperlipidemia. She was admitted to [facility] yesterday, 01/01/17, with chest pain and an episode of rapid ventricular response. She reports being under quite a bit of stress. 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 Yesterday while working, she had an onset of feeling dizzy. She took her blood pressure and found it to be elevated. She felt like her heart was pounding and beating fast. She was then brought in by private vehicle. She denied any chest pain or dyspnea. In the Emergency Department, she had documented rapid atrial fibrillation with heart rates 130s-170 range. Apparently this converted spontaneously. The rhythm strip documenting conversion back to sinus rhythm is not provided; however, ECG done on 01/01/17 at 8:49 p.m. reviewed by me now, does demonstrate sinus rhythm at 82 beats per minute. There were no acute ST-T wave changes. Repeat EKG this morning, 01/02/17 at 8:43 a.m. also demonstrates sinus rhythm and no acute ST-T wave changes. She does not have known prior paroxysmal atrial fibrillation, though she has a vague history of arrhythmia. She is known to the heart clinic for her history of hyperlipidemia. She is currently on low-dose Rosuvastatin. She has been on Atorvastatin in the past which apparently caused some transaminitis. She is known to have nonobstructive carotid disease. She has a history of PVCs. She had an echocardiogram 03/2016 demonstrating normal left ventricular systolic function, ejection fraction 70%, grade 1 diastolic dysfunction, no valvular heart disease. HOME MEDICATIONS Synthroid. Spironolactone at 50 mg b.i.d. Atenolol. Losartan 52 mg daily. ALLERGIES: Listed as Atorvastatin, Furosemide, Hydrochlorothiazide, although it is unclear what the reaction is to these medications. PAST SURGICAL HISTORY 1. Prior foot surgery. SOCIAL HISTORY: She lives in [facility]. She does not smoke. She apparently is under some work related stress. PHYSICAL EXAMINATION VITAL SIGNS: Blood pressure 129/59, afebrile. She is in a sinus rhythm at 60 beats per minute. O2 saturation is 96% on 2 liters. NECK: Neck veins not elevated, carotid upstrokes are normal with no bruits. CHEST: Lungs clear to auscultation, no wheeze or rale. CARDIAC: S1 and S2 are normal. No murmur. No gallop. No rub. ABDOMEN: Soft, nontender. No masses, no bruits. EXTREMITIES: No edema. Distal pulses are palpable in upper and lower extremities. NEUROLOGIC: Nonfocal. LABORATORY DATA: Hemoglobin 13.7, platelet 148,000. White blood cell count 4.5. Potassium 4.0. Creatinine 0.8. Troponin levels have been normal. TSH 1.23. Chest x-ray done yesterday shows no acute cardiopulmonary findings. She had borderline cardiomegaly. IMPRESSION 1. Paroxysmal atrial fibrillation, CHADSVASC score is 4. Currently in sinus rhythm. 2. Hypertension, currently controlled. 3. Hyperlipidemia, on Rosuvastatin. 4. Normal left ventricular systolic function with no valvular heart disease by echocardiogram 03/2016. RECOMMENDATION: Given the patient's elevated CHADSVASC score, she would likely benefit from oral anticoagulation for the prevention of thromboembolic events. Options would be Warfarin or one of the newer agents such as Eliquis 5 mg b.i.d. I would recommend she discontinue Atenolol and use Carvedilol for blood pressure lowering beginning at 6.25 mg b.i.d. I would no recommend a dose of Spironolactone greater than 50 mg daily and ideally not greater than 25 mg daily. I am unsure what her reaction to Hydrochlorothiazide has been, if not worrisome, a low dose of Hydrochlorothiazide would likely be beneficial if needed. Findings and recommendations were discussed with the patient. All questions answered. Thank you for asking us to participate in the care of this very nice elderly patient. SHAMAR
[2017-01-02] MEDS: CARVEDILOL 12.5 MG TABLET PO SCH (20:51)
[2017-01-02] MEDS ORDERED: ROSUVASTATIN CALCIUM 20 MG TABLET PO SCH (21:00)
[2017-01-03] MEDS: PANTOPRAZOLE 40 MG TABLET PO SCH (06:19)
[2017-01-03] MEDS: LEVOTHYROXINE 100 MCG TABLET PO SCH (06:19)
[2017-01-03 08:05] VITALS: RESP 18
--- NOTE | 2017-01-03 08:35 | DC SUMMARY: IM Note ---
Discharge Summary: IM/Peds Provider: Date of Admission: 01/01/17 Admitting Provider: YESSENIA TURNER Attending Provider: MELVI JAY MD Discharging Provider: YASH HARRELL Primary Care Provider: Discharge Date: 01/03/17 - Diagnosis (1) Hypertensive urgency Status: Resolved (2) Bilateral atherosclerotic renal artery stenosis Status: Acute (3) Atrial fibrillation with RVR Status: Resolved (4) Nocturnal hypoxemia Status: Acute (5) Sleep apnea Status: Acute (6) Hypothyroid Status: Chronic Hospital Course: Patient is a 76 yo F who was admitted on 01/01/17 for hypertensive urgency/afib with rvr. Fortunately her rate decreased in emergency room and was transitioned to labetelol for ongoing rate control. With further evaluation into cause of her hypertension patient did have a CTA abd/pelvis which did show bilateral renal artery stenosis. She was started on a 24 hour urine collection which she completed last evening- will need follow up as send out lab. Her medications were adjusted during her stay. The atenolol was initially transitioned to labetalol and then switched to carvedilol yesterday with cardiology. Losaratan was continued at 50mg. We will decrease her spironolactone to 50mg daily and continue further adjustments a needed. Blood pressure and heart rate were both well controlled during stay. In respect to her paroxysymal atrial fibrillation this was a first time event for patient- CHADs score of 3- Cardiology consultation said consider eliquis or other anticoagulation and at this time patient does not want this. We increased her to a full aspirin and will reevaluate as outpatient. Patient was also noted to have some thrombocytopenia at baseline. She will plan to follow up with Dr. Araujo for review of her medications and CT findings to see if any procedural intervention may be of benefit to patient. Shital is very concerned with her new findings as she is vegetarian and has overall very healthy lifestyle ( has history of CAD/CVA etc so she understands the potential risks). At day of discharge patient is overall asymptomatic besides the underlying stressors of her changing health status. - Time Spent with Patient Total time spent providing and/or coordinating discharge services: Time with patient DS: Greater than 30 minutes Discharge - Patient/Caregiver Discharge Instructions Activity Level: As tolerataed Diet: Patient prefererence/Cardiac Additional Instructions: STOP taking your atenolol. You will now instead be taking Cozaar and Coreg for blood pressure and heart rate control. Your Spironolactone dose has been decreased to 50mg once daily. Continue to monitor your blood pressure and heart rate at home. Ensure that you call to set up a follow up appointment for 7 days from time of discharge with Dr. Jay as well as Dr. Pan. (01/09/17 recommended) The best number to call for this appointment arrangement is [phone] (Dr. Jay) [phone] (Dr. Pan). It would be best to call Thursday (01/05/17) to arrange appointment times. Follow up: BRIGHT PAN MD [MD] - 7 Days (Recheck appointment at 10:40 in the [facility]. [phone]) MELVI JAY MD [Primary Care Provider] - 7 Days Overall discharge status: patient is progressing back to baseline Print Language: SETSWANA Home Medications: Spironolactone [Aldactone*] 50 mg PO DAILY #30 tablet aspirin EC [Aspirin EC*] 325 mg PO DAILY #90 tablet Carvedilol [Coreg*] 12.5 mg PO BID #60 tablet Losartan Potassium [Cozaar*] 50 mg PO DAILY #30 tablet Disposition: HOME, SELF-CARE Discharge Summary Data - Medication History Medication History: Home Medications Atenolol [Tenormin*] 25 mg PO DAILY 01/02/17 Ibuprofen [Ibuprofen*] 400 mg PO QID PRN 01/02/17 Levothyroxine [Synthroid*] 100 mcg PO DAILY 01/02/17 Losartan Potassium [Cozaar*] 50 mg PO DAILY 01/02/17 Omeprazole [Prilosec] 20 mg PO PRN PRN 01/02/17 Rosuvastatin Calcium 5 mg PO HS 01/02/17 Spironolactone [Aldactone*] 50 mg PO DAILY 01/02/17 aspirin EC [Aspirin EC*] 81 mg PO DAILY 01/02/17 Inpatient Medications 01/02/17 21:00 Carvedilol [Coreg] 12.5 mg PO BID 01/03/17 09:00 Spironolactone [Aldactone] 50 mg PO DAILY Procedures and tests throughout hospitalization: Pending Orders 01/02/17 08:10 ALDOSTERONE [SEND] Routine RENIN ACTIVITY [SEND] Routine 01/02/17 21:00 Carvedilol [Coreg] 12.5 mg PO BID 01/03/17 09:00 Spironolactone [Aldactone] 50 mg PO DAILY Labs on day of discharge: Labs from last 24 hours 01/02/17 01/01/17 08:10 23:55 Troponin I < 0.012 Renin Activity Cancelled Aldosterone Cancelled TSH 1.23 Ur Catecholamines 24 Hr Pending Pending labs- 24 hour urine collection, renin/aldosterone - Imaging and Cardiology CTA Abdomen/Pelvis Additional comments: Diffuse atherosclerotis abdominal aorta, 70-90% stenosis of origin of left and right renal artery, 70-90% stenosis origin celiac, 75-90% stenosis right superficial femoral artery. IM: Discharge Physical Exam - I&O/Vital Signs I&O: Intake & Output 01/02/17 01/03/17 01/03/17 21:59 05:59 13:59 Intake Total 1550 900 Output Total 1300 900 Balance 250 0 Weight 77 kg Intake: Oral 1550 900 Output: Urine 1300 900 Other: Urine Appearance Clear Clear Urine Color Yellow Yellow Stool Size Moderate Moderate Voiding Method Toilet Toilet Toilet # Voids 2 # Bowel Movements 1 0 Vital Signs: Last Vital Signs Temp 36.6 C 01/03/17 06:33 Pulse 60 01/03/17 06:33 Resp 18 01/03/17 08:01 BP 120/55 01/03/17 06:33 Pulse Ox 94 01/03/17 08:01 Oxygen Flow Rate 2 Oxygen Delivery Method Room Air - Constitutional General appearance: Present: average body habitus - Head Head exam: Present: atraumatic - Eye Eye exam: Present: EOMI, normal appearance - ENT ENT exam: Present: mucous membranes moist - Neck Neck exam: Present: full ROM. Absent: lymphadenopathy, thyromegaly - Respiratory Respiratory exam: Present: CTAB - Cardiovascular Cardiovascular exam: Present: RRR (murmer at RUSB) - GI/Abdominal GI/Abdominal exam: Present: normal bowel sounds, soft. Absent: organomegaly, tenderness - Extremities Exam Extremities exam: Absent: calf tenderness, edema - Psychiatric Psychiatric exam: Present: normal affect, normal mood - Skin Skin exam: Absent: erythema - Allied Health Notes Allied health notes reviewed: nursing
[2017-01-03] MEDS: CARVEDILOL 12.5 MG TABLET PO SCH (08:37)
[2017-01-03] MEDS: LOSARTAN POTASSIUM 50 MG TABLET PO SCH (08:38)
[2017-01-03 08:45] VITALS: BP 133/78; PULSE 64; TEMP 98; O2SAT 91
[2017-01-03] MEDS ORDERED: SPIRONOLACTONE 25 MG TABLET PO SCH (09:00)
[2017-01-06 11:20] LABS: ALDOSTERONE SEE COMMENTS (()); RENIN ACTIVITY SEE COMMENTS (())
== END 2017-01-03 10:36 | disposition home or self-care (01) ==
LOC: ER 20:21 → IN 23:50
PROVIDERS: ADMIT Hospitalist; ATTEND Internal Medicine
DX: I48.91 Unspecified atrial fibrillation (principal); I12.9 Hypertensive chronic kidney disease with stage 1 through stage 4 chronic kidney disease, or unspecified chronic kidney disease; N18.3 Chronic kidney disease, stage 3 (moderate); I51.9 Heart disease, unspecified; E03.9 Hypothyroidism, unspecified; G47.34 Idiopathic sleep related nonobstructive alveolar hypoventilation; Z99.81 Dependence on supplemental oxygen; G47.30 Sleep apnea, unspecified; R73.01 Impaired fasting glucose; M54.5 Low back pain; F43.12 Post-traumatic stress disorder, chronic; D75.1 Secondary polycythemia; D69.6 Thrombocytopenia, unspecified; F41.8 Other specified anxiety disorders; K21.9 Gastro-esophageal reflux disease without esophagitis; Z79.899 Other long term (current) drug therapy
CPT/HCPCS: 36415; 71010; 74174; 80048; 82088; 82384; 83735; 84244; 84443; 84484; 85025; 85610; 93005; 93010; 93041; 93042; 96374; 96375; 99214; 99217; 99220; 99226; 99285; 99291; E0555; G0378

== ENCOUNTER 2017-04-01 06:27 | Day surgery (SDC) | payer MEDICARE, BC ==
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
[~2017-04-01 06:27] MED LIST changes: -APRACLONIDINE 0.5% OPHTH 5 ML BTL OP ONE; +APRACLONIDINE 0.5% OPHTH 5 ML BTL OP PRN; -BUPIVACAINE HCL/PF 0.75% 10 ML VIAL OP ONE; +BUPIVACAINE HCL/PF 0.75% 10 ML VIAL OP PRN; -CIPROFLOXACIN 0.3% OPHTH 25 DROP/2.5 ML BTL OP SCH; +CIPROFLOXACIN 0.3% OPHTH 50 DROP/5 ML BTL OP SCH
[2017-04-01] MEDS ORDERED: BUPIVACAINE HCL/PF 0.75% 10 ML VIAL ONE (06:55)
[2017-04-01] MEDS ORDERED: FLURBIPROFEN 0.03% OPHTH 2.5 ML BTL ONE (06:55)
[2017-04-01] MEDS ORDERED: APRACLONIDINE 0.5% OPHTH 5 ML BTL ONE (06:55)
[2017-04-01] MEDS ORDERED: CYCLOPENTOLATE HCL 1% OPHTH 2 ML BTL ONE (06:55)
[2017-04-01] MEDS ORDERED: CIPROFLOXACIN 0.3% OPHTH 50 DROP/5 ML BTL ONE (06:56)
[2017-04-01] MEDS ORDERED: NORFLURANE/HFC 245FA 1 APPLIC CAN TOPICAL ONE (06:56)
[2017-04-01] MEDS ORDERED: PHENYLEPHRINE 2.5% OPHTH 10 DROP/2 ML BTL ONE (06:56)
[2017-04-01 07:01] VITALS: TEMP 96.8
[2017-04-01] MEDS ORDERED: BACITRACIN OPHTH OINTMENT 3.5 GM TUBE ONE (07:07)
[2017-04-01] MEDS ORDERED: KETOROLAC 0.45% OPHTH 1 DROP/EACH DROPERETTE ONE (07:07)
[2017-04-01] MEDS ORDERED: CHONDROITIN/HYALURONIDATE OPHT 0.5 ML KIT ONE (07:08)
[2017-04-01] MEDS ORDERED: LIDOCAINE HCL/PF 1% 30 ML VIAL ONE (07:08)
[2017-04-01] MEDS ORDERED: MIDAZOLAM HCL 2 MG/2 ML VIAL ONE (07:50)
[2017-04-01 08:51] VITALS: BP 126/72; PULSE 65; RESP 16; O2SAT 91
--- NOTE | 2017-04-01 15:32 | OPERATIVE REPORT ---
DATE OF SURGERY: 04/01/17 SURGEON: Dylan Moya MD ANESTHESIA: Topical with monitored anesthesia care. PREOPERATIVE DIAGNOSIS: Cataract, left eye. POSTOPERATIVE DIAGNOSIS: Cataract, left eye. OPERATION PERFORMED: Cataract extraction by phacoemulsification with posterior chamber intraocular lens, left eye. COMPLICATIONS: None. PROCEDURE: The patient was brought to the operating room where she was placed in the supine position. After the instillation of additional tetracaine drops in the left eye, the eye was prepped and draped in the usual sterile ophthalmic manner. A lid speculum was placed in the left eye, after which an inferior paracentesis was fashioned with 1-mm steel keratome, and 0.2 mL of 1% nonpreserved lidocaine was injected intracamerally followed by Viscoat. A temporal clear corneal incision of 3-mm width was fashioned with a steel keratome. A continuous curvilinear capsulorrhexis was fashioned with a bent-needle cystitome and Utrata forceps under Viscoat. Hydrodissection was carried out with balanced salt solution on an intraocular cannula. The nucleus was noted to rotate freely. Phacoemulsification proceeded in a two-handed fashion utilizing typical phacoemulsification times and carranza, as the nucleus was noted to be 2+ dense. Residual cortical material was then removed with the automated irrigation-aspiration handpiece. The anterior chamber and capsular bag were then reinflated with Provisc, after which an AcrySof model SA60AT foldable acrylic intraocular lens of 25.0 diopters power was placed into the capsular bag. The haptics were rotated with a Y hook and the intraocular lens was noted to center well. Residual viscoelastic was then removed with the automated irrigation-aspiration handpiece , after which the wound edges were hydrated with balanced salt solution. The intraocular pressure at the conclusion of the procedure was physiologic, and there was no evidence of wound leakage upon testing with a Weck Romelia sponge. Acular drops and bacitracin ointment were placed in the left eye, and the patient was brought to the recovery area, having tolerated the procedure well. She was given full postoperative instructions. SHAMAR
== END 2017-04-01 08:55 | disposition home or self-care (01) ==
LOC: SDS 06:27
PROVIDERS: ATTEND Ophthalmology
DX: H25.032 Anterior subcapsular polar age-related cataract, left eye (principal); H26.491 Other secondary cataract, right eye; Z96.1 Presence of intraocular lens; F41.9 Anxiety disorder, unspecified; L90.8 Other atrophic disorders of skin; I65.23 Occlusion and stenosis of bilateral carotid arteries; F32.9 Major depressive disorder, single episode, unspecified; I51.9 Heart disease, unspecified; E78.00 Pure hypercholesterolemia, unspecified; K21.9 Gastro-esophageal reflux disease without esophagitis; E03.9 Hypothyroidism, unspecified; R09.02 Hypoxemia; R73.01 Impaired fasting glucose; G47.33 Obstructive sleep apnea (adult) (pediatric); I73.9 Peripheral vascular disease, unspecified; D75.1 Secondary polycythemia; L71.9 Rosacea, unspecified; N18.3 Chronic kidney disease, stage 3 (moderate); D69.6 Thrombocytopenia, unspecified; Z79.899 Other long term (current) drug therapy
CPT/HCPCS: 66984; J0171; J2250; V2632